=== PATIENT | female | born 1985 | race Caucasian/White ===

== ENCOUNTER 2024-03-16 18:27 | Emergency (ER) | payer MEDICAID ==
[~2024-03-16] VITALS: Ht 165.1 cm; Wt 79.0 kg
[2024-03-16 18:36] VITALS: TEMP 97.8
[2024-03-16 18:46] VITALS: BP 134/73; PULSE 102; RESP 17; O2SAT 100
[2024-03-16] MEDS: KETOROLAC TROMETH 60MG/2ML VIAL IM ONE (19:58)
[2024-03-16] MEDS ORDERED: ACET500T58 PO (21:27)
[2024-03-16] MEDS ORDERED: IBUP-1455 PO (21:27)
== END 2024-03-16 21:42 | disposition home or self-care (01) ==
LOC: ER 18:27
DX: S30.0XXA Contusion of lower back and pelvis, initial encounter (principal); F41.9 Anxiety disorder, unspecified; Z88.2 Allergy status to sulfonamides; X58.XXXA Exposure to other specified factors, initial encounter; Y93.89 Activity, other specified; Y92.89 Other specified places as the place of occurrence of the external cause; Y99.8 Other external cause status
CPT/HCPCS: 72070; 72100; 96372; 99284; J1885